=== PATIENT | male | born 1980 | race Caucasian/White ===

== ENCOUNTER 2020-04-21 19:39 | Observation (INO) ==
[2020-04-21] MEDS ORDERED: DILTIAZEM 50 MG/10 ML VIAL IV STA (20:02)
[2020-04-21 20:13] LABS: Basophils # 0.1 10*3/uL (0.0-0.2); Basophils % 0.8 % (0.0-0.8); Eosinophils # 0.2 10*3/uL (0.0-0.87); Eosinophils % 1.6 % (0.00-10.9); Hematocrit 47.7 VOL% (42.0-52.0); Hemoglobin 15.8 GM/DL (14.0-18.0); Immature Granulocytes % 0.3 %; Immature Granulocytes Absolute 0.03 #; Lymphocytes # 2.4 10*3/uL (1.4-4.0); Lymphocytes % 22.2 % (21.2-54.2); Mean Corpuscular HGB Conc 33.1 GM/DL (32-36); Mean Platelet Volume 8.6 FL (9.6-12.0); Monocytes % 5.3 % (1.7-12.7); Neutrophils % 69.8 % (38.7-73.9); Platelet Count 289 T/CUMM (130-400); Red Blood Count 5.02 MC/CUMM (3.8-5.5); Red Cell Distribution Width 12.9 % (9.3-17.3); White Blood Count 10.9 T/CUMM (4-12)
[2020-04-21 20:23] LABS: Bilirubin,Total 0.7 MG/DL (0.2-1.0); Calcium 8.8 MG/DL (8.5-10.1); Osmolality,Calculated 283.5 MOS/KG (273-304); Potassium 3.7 MMOL/L (3.5-5.1)
[2020-04-21] MEDS ORDERED: DILTIAZEM 100 MG VIAL.ADD IV ONE (20:37)
[2020-04-21] MEDS ORDERED: ONDANSETRON 4 MG/2 ML VIAL IV STA (20:41)
[2020-04-21] MEDS ORDERED: ASPIRIN EC 325 MG TABLET PO STA (20:41)
[2020-04-21] MEDS ORDERED: MORPHINE 4 MG/1 ML VIAL IV STA (20:41)
[2020-04-21] MEDS ORDERED: ONDANSETRON 4 MG/2 ML VIAL ONE (20:42)
[2020-04-21] MEDS ORDERED: ASPIRIN 325 MG TABLET ONE (20:43)
[2020-04-21] MEDS ORDERED: DILTIAZEM INJ 100 MG in SODIUM CHLORIDE 0.9% 100 ML IV SCH (21:00)
[2020-04-21 21:06] LABS: Partial Thromboplastin Time 26.3 SECS (23.9-33.8)
[2020-04-21] MEDS ORDERED: ENOXAPARIN 40 MG/0.4 ML SYRINGE SUBCUT SCH (22:00)
[2020-04-21] MEDS ORDERED: DEXTROSE 50% 25 GM/50 ML VIAL IV PRN (22:00)
[2020-04-21] MEDS ORDERED: MORPHINE 4 MG/1 ML VIAL IV PRN (22:00)
[2020-04-21] MEDS ORDERED: NICOTINE 21 MG/24 HR PATCH TRANSDERM PRN (22:00)
[2020-04-21] MEDS ORDERED: GLUCAGON 1 MG VIAL IM PRN (22:00)
[2020-04-21] MEDS ORDERED: ONDANSETRON 4 MG/2 ML VIAL IV PRN (22:00)
[2020-04-21] MEDS ORDERED: hydrALAZINE 20 MG/1 ML VIAL IV PRN (22:00)
[2020-04-21] MEDS: SODIUM CHLORIDE 0.9% 1,000 ML IV SCH (23:39)
[2020-04-22] MEDS ORDERED: HydrOXYzine PAMOATE 25 MG CAPSULE PO PRN (06:18)
[2020-04-22] MEDS ORDERED: ESCITALOPRAM 10 MG TABLET PO SCH (09:00)
[2020-04-22] MEDS: SODIUM CHLORIDE 0.9% 1,000 ML IV SCH (09:01)
[2020-04-22 09:25] LABS: Calcium 8.9 MG/DL (8.5-10.1); Osmolality,Calculated 275.7 MOS/KG (273-304); Potassium 4.2 MMOL/L (3.5-5.1)
[2020-04-22] MEDS ORDERED: ASPIRIN CHEW 81 MG TABLET PO SCH (11:30)
[2020-04-22] MEDS ORDERED: ASCORBIC ACID 500 MG TABLET PO SCH (11:30)
[2020-04-22] MEDS ORDERED: POTASSIUM CHLORIDE 10 MEQ TABLET PO SCH (11:30)
[2020-04-22 12:05] VITALS: BP 144/70
[2020-04-27] MEDS ORDERED: TESTOSTERONE CYPIONATE 200 MG/ML VIAL IM SCH (09:00)
== END 2020-04-22 14:05 | disposition home or self-care (01) ==
LOC: N.ED 19:39 → N.EDINP 19:39 → N.TELEN 22:51
PROVIDERS: ADMIT Internal Medicine; ATTEND Internal Medicine